=== PATIENT | female | born 1945 | race American Indian/Alaskan Native ===

== ENCOUNTER 2024-11-17 17:25 | Inpatient (IN) | payer OTHER, MEDICARE ==
[2024-11-17] MEDS: fentaNYL 100 MCG/2 ML SDV IM ONE ×2 (18:38→18:48)
[2024-11-17] MEDS: Acetaminophen/oxyCODONE 325-5 MG Tab PO ONE (18:46)
[2024-11-17] MEDS ORDERED: Naloxone 0.4 MG/ML SDV IVPUSH PRN (19:09)
[2024-11-17] MEDS: HYDROmorphone 1 MG/ML Syringe IVPUSH ONE (19:21)
[2024-11-17] MEDS: Ondansetron 4 MG/2 ML SDV IVPUSH ONE (19:26)
[2024-11-17 19:29] LABS: BASOPHILS PERCENT AUTO 0.3 % (0.0-1.0); EOSINOPHILS PERCENT AUTO 0.3 % (0.0-6.0); HEMATOCRIT 36.7 % (37.0-47.0); HEMOGLOBIN 11.9 gm/dl (12.0-16.0); IMMATURE GRAN ABSOLUTE AUTO 0.04 K/mm3 (0.00-0.05); IMMATURE GRAN PERCENT AUTO 0.4 % (0.0-0.4); LYMPHOCYTES ABSOLUTE AUTO 1.1 K/mm3 (1.0-4.8); MEAN CORPUSCULAR HGB CONC 32.4 g/dl (32.0-36.0); MEAN CORPUSCULAR VOLUME 83.2 fl (83.0-99.0); MONOCYTES ABSOLUTE AUTO 0.6 K/mm3 (0.0-0.8); MONOCYTES PERCENT AUTO 5.6 % (0.0-8.0); NEUTROPHILS ABSOLUTE AUTO 8.5 K/mm3 (1.8-7.7); NEUTROPHILS PERCENT AUTO 82.4 % (41.0-71.0); PLATELET COUNT,PLT 254 K/mm3 (150-400); RED BLOOD CELL COUNT 4.41 M/mm3 (4.10-5.30); WHITE BLOOD CELL COUNT,WBC 10.31 K/mm3 (3.9-11.3)
[2024-11-17 19:32] LABS: INR 0.98; PROTHROMBIN TIME 10.4 SECONDS (9.7-12.0)
[2024-11-17 19:35] LABS: A/G RATIO 1.1 (1-2); ALBUMIN 3.5 g/dl (3.4-5.0); ANION GAP 17.2 (5-15); BILIRUBIN TOTAL 0.8 mg/dL (0.2-1.0); CALCIUM 8.9 mg/dL (8.5-10.1); CREATININE 0.6 mg/dL (0.55-1.02); EST CRCL DRUG DOSING (CG) 56.43 mL/min; POTASSIUM,K 4.2 mEq/L (3.5-5.1); PROTEIN TOTAL,TP 6.7 g/dl (6.4-8.2)
[2024-11-17] MEDS ORDERED: Ketorolac 30 MG/ML SDV IV PRN (20:26)
[2024-11-17] MEDS ORDERED: Ondansetron 4 MG Tab.DIS PO PRN (20:26)
[2024-11-17] MEDS ORDERED: Acetaminophen 325 MG Tab PO PRN (20:26)
[2024-11-17] MEDS ORDERED: Docusate Sodium 100 MG Cap PO PRN (20:26)
[2024-11-17] MEDS: Acetaminophen/HYDROcodone 325-5 MG Tab PO PRN (21:58)
[2024-11-17] MEDS: HYDROmorphone 0.5 MG/0.5 ML Syringe IVPUSH PRN (23:55)
[2024-11-18] MEDS: Baclofen 10 MG Tab PO PRN (08:34)
[2024-11-18] MEDS: Docusate Sodium 100 MG Cap PO SCH (08:35)
[2024-11-18] MEDS: Aspirin 81 MG Tab.EC PO SCH (08:35)
[2024-11-18] MEDS: Cyanocobalamin (Vitamin B12) 1,000 MCG Tab PO SCH (08:36)
[2024-11-18] MEDS: Magnesium Oxide 400 MG Tab PO SCH (08:36)
[2024-11-18] MEDS: Furosemide 20 MG Tab PO SCH (08:36)
[2024-11-18] MEDS: Losartan 50 MG Tab PO SCH (08:47)
[2024-11-18] MEDS ORDERED: Ondansetron 4 MG/2 ML SDV IV PRN (11:26)
[2024-11-18] MEDS: Acetaminophen 325 MG Tab PO SCH (11:37)
[2024-11-18] MEDS: Enoxaparin 40 MG/0.4 ML Syringe SUBCUT SCH (11:38)
[2024-11-18] MEDS: oxyCODONE 5 MG Tab PO PRN (15:12)
[2024-11-18] MEDS: Cyclobenzaprine 10 MG Tab PO PRN (18:29)
[2024-11-18] MEDS: Ibuprofen 600 MG Tab PO PRN (19:14)
[2024-11-19] MEDS: Levothyroxine 75 MCG Tab PO SCH (05:10)
[2024-11-19 05:51] LABS: A/G RATIO 1.1 (1-2); ANION GAP 11.8 (5-15); BILIRUBIN TOTAL 0.6 mg/dL (0.2-1.0); CALCIUM 8.4 mg/dL (8.5-10.1); EST CRCL DRUG DOSING (CG) 33.86 mL/min; MAGNESIUM 2.1 mg/dL (1.8-2.4); POTASSIUM,K 3.8 mEq/L (3.5-5.1); PROTEIN TOTAL,TP 5.8 g/dl (6.4-8.2)
[2024-11-19 06:08] LABS: BASOPHILS PERCENT AUTO 0.4 % (0.0-1.0); EOSINOPHILS ABSOLUTE AUTO 0.1 K/mm3 (0.0-0.4); EOSINOPHILS PERCENT AUTO 1.8 % (0.0-6.0); HEMATOCRIT 31.2 % (37.0-47.0); IMMATURE GRAN ABSOLUTE AUTO 0.03 K/mm3 (0.00-0.05); IMMATURE GRAN PERCENT AUTO 0.4 % (0.0-0.4); LYMPHOCYTES PERCENT AUTO 25.7 % (24.0-44.0); MEAN CORPUSCULAR HEMOGLOBIN 27.2 pg (28.0-32.0); MEAN CORPUSCULAR HGB CONC 32.1 g/dl (32.0-36.0); MEAN CORPUSCULAR VOLUME 84.8 fl (83.0-99.0); MEAN PLATELET VOLUME 10.5 fl (9.4-12.3); MONOCYTES ABSOLUTE AUTO 0.7 K/mm3 (0.0-0.8); MONOCYTES PERCENT AUTO 8.5 % (0.0-8.0); NEUTROPHILS ABSOLUTE AUTO 4.9 K/mm3 (1.8-7.7); NEUTROPHILS PERCENT AUTO 63.2 % (41.0-71.0); PLATELET COUNT,PLT 229 K/mm3 (150-400); RED BLOOD CELL COUNT 3.68 M/mm3 (4.10-5.30); WHITE BLOOD CELL COUNT,WBC 7.78 K/mm3 (3.9-11.3)
[2024-11-20 05:43] LABS: BASOPHILS PERCENT AUTO 0.7 % (0.0-1.0); EOSINOPHILS ABSOLUTE AUTO 0.2 K/mm3 (0.0-0.4); EOSINOPHILS PERCENT AUTO 2.9 % (0.0-6.0); HEMATOCRIT 30.8 % (37.0-47.0); HEMOGLOBIN 9.7 gm/dl (12.0-16.0); IMMATURE GRAN ABSOLUTE AUTO 0.03 K/mm3 (0.00-0.05); IMMATURE GRAN PERCENT AUTO 0.5 % (0.0-0.4); LYMPHOCYTES ABSOLUTE AUTO 2.3 K/mm3 (1.0-4.8); MEAN CORPUSCULAR HEMOGLOBIN 27.2 pg (28.0-32.0); MEAN CORPUSCULAR HGB CONC 31.5 g/dl (32.0-36.0); MEAN CORPUSCULAR VOLUME 86.3 fl (83.0-99.0); MEAN PLATELET VOLUME 10.2 fl (9.4-12.3); MONOCYTES ABSOLUTE AUTO 0.6 K/mm3 (0.0-0.8); MONOCYTES PERCENT AUTO 9.3 % (0.0-8.0); NEUTROPHILS PERCENT AUTO 48.6 % (41.0-71.0); PLATELET COUNT,PLT 223 K/mm3 (150-400); RED BLOOD CELL COUNT 3.57 M/mm3 (4.10-5.30); WHITE BLOOD CELL COUNT,WBC 6.11 K/mm3 (3.9-11.3)
[2024-11-20 05:57] LABS: A/G RATIO 0.9 (1-2); ALBUMIN 2.7 g/dl (3.4-5.0); ANION GAP 7.9 (5-15); BILIRUBIN TOTAL 0.5 mg/dL (0.2-1.0); BUN/CREATININE RATIO 27.1 (14-18); CALCIUM 8.4 mg/dL (8.5-10.1); CREATININE 0.7 mg/dL (0.55-1.02); EST CRCL DRUG DOSING (CG) 48.37 mL/min; MAGNESIUM 2.1 mg/dL (1.8-2.4); POTASSIUM,K 3.9 mEq/L (3.5-5.1); PROTEIN TOTAL,TP 5.7 g/dl (6.4-8.2)
[2024-11-21] MEDS: Polyethylene Glycol 3350 Powder 17 GM Packet PO PRN (05:29)
== END 2024-11-26 12:20 | DRG 534 ==
LOC: JD.ED 17:25 → MERGE 20:26 → JD.MS 20:26
PROVIDERS: ADMIT Family Medicine; ATTEND Student in an Organized Health Care Education/Training Program
DX: S79.101A Unspecified physeal fracture of lower end of right femur, initial encounter for closed fracture (principal); W18.39XA Other fall on same level, initial encounter; G14 Postpolio syndrome; K21.9 Gastro-esophageal reflux disease without esophagitis; I10 Essential (primary) hypertension; H54.7 Unspecified visual loss; H26.9 Unspecified cataract; E78.00 Pure hypercholesterolemia, unspecified; E03.9 Hypothyroidism, unspecified; F15.90 Other stimulant use, unspecified, uncomplicated; R26.2 Difficulty in walking, not elsewhere classified; M85.861 Other specified disorders of bone density and structure, right lower leg; M17.11 Unilateral primary osteoarthritis, right knee; Z88.1 Allergy status to other antibiotic agents; Y93.89 Activity, other specified; Z98.1 Arthrodesis status; Z98.890 Other specified postprocedural states; Y92.9 Unspecified place or not applicable; Z79.82 Long term (current) use of aspirin; Z79.899 Other long term (current) drug therapy
CPT/HCPCS: 36415; 73564-26-RT; 73564-RT; 80053; 83735; 85025; 85610; 94761; 96372; 96374; 96375; 97110-GP; 97161-GP; 97166-GO; 97530-GO; 97530-GP; 97535-GO; 99284; 99284-25; A9270-GY; J1171; J1650; J2405; J3010; U0002